=== PATIENT | female | born 1955 | race Caucasian/White ===

== ENCOUNTER 2022-02-27 12:47 | Outpatient (CLI) | payer MEDICARE, BC, SELFPAY | END 2022-02-27 12:48 | disposition home or self-care (01) | LOC: RAD 12:52 | PROVIDERS: Visit Provider Family Medicine | DX: M17.11 Unilateral primary osteoarthritis, right knee (principal); G89.29 Other chronic pain; M25.561 Pain in right knee | CPT/HCPCS: 64624; J2250; J3010 ==